=== PATIENT | female | born 1975 | race African-American/Black ===

== ENCOUNTER → 2017-05-16 | Outpatient (CLI) | payer OTHER ==
--- NOTE | 2017-05-16 16:14 | MG ---
HISTORY: SCREENING Comparison: None FINDINGS: Bilateral CC and MLO projections of the right and left breast were obtained. Heterogeneously dense f ibroglandular tissue is seen to be present. No dominant suspicious architectural distortion, mass or clustered microcalcifications can be observed to suggest malignancy. However, there is focal asymme try in the upper outer quadrant right breast at mid to posterior depth which could reflect benign asy mmetrical fibroglandular parenchyma but for which further imaging evaluation is recommended given the lack of previous exams to document stability. No skin thickening or nipple retraction is appreciated . No pathological lymphadenopathy can be identified. Benign-appearing calcifications are noted with in the right and left breast. IMPRESSION: Right breast focal asymmetry for which follow-up spot compression and mL views are recom mended. Ultrasound may be warranted as well pending mammographic findings. ACR CATEGORY 0 - assessment incomplete; additional imaging recommended. Diagnostic CAD was utilized and reviewed. * 0 (ZERO) - ASSESSMENT INCOMPLETE; ADDITIONAL IMAGING IS NEEDED. * 1/1 (ONE) - NEGATIVE. * 2/II (TWO) - BENIGN FINDINGS. * 3/III (THREE) - PROBABLY BENIGN FINDING; SHORT INTERVAL FOLLOW-UP SUGGESTED. * 4/IV (FOUR) - SUSPICIOUS ABNORMALITY; BIOPSY SHOULD BE CONSIDERED. * 5/V - HIGHLY SUSPICIOUS OF MALIGNANCY; BIOPSY SHOULD BE PERFORMED. A NEGATIVE X-RAY REPORT SHOULD NOT DELAY BIOPSY IF A DOMINANT OR CLINICALLY SUSPICIOUS MASS IS PRESENT; 4 TO 8 PERCENT OF CANCERS ARE NOT IDENTIFIED BY X-RAY. A NEGA TIVE REPORT MAY REINFORCE THE CLINICAL IMPRESSION. ADENOSIS AND DENSE BREASTS MAY OBSCURE AN UNDERLY ING NEOPLASM. Reported By:
== END ==
LOC: RAD 09:24
PROVIDERS: ATTEND Internal Medicine
DX: Z12.31 Encounter for screening mammogram for malignant neoplasm of breast (principal)
CPT/HCPCS: 77067

== ENCOUNTER → 2017-05-30 | Outpatient (CLI) | payer OTHER ==
--- NOTE | 2017-05-30 14:46 | MG ---
HISTORY: Right breast focal asymmetry Comparison: 05/16/2017 Diagnostic right mammogram FINDINGS: Spot-compression CC and MLO views of the right breast were obtained as well as standard mediolateral view. There is a persistent small focal asymmetry within the upper-outer quadrant of the right breast . Targeted sonography of the right breast demonstrates a small simple parenchymal cysts measuring ari roximately 3 mm x 1 mm, likely corresponding to the mammographic focal asymmetry. No significant arch itectural distortion, mass or clustered microcalcifications can be observed to suggest malignancy. B enign-appearing calcifications are noted. IMPRESSION: 1. Small parenchymal cyst corresponding to mammographic focal asymmetry of the right breast. ACR CATEGORY 2 - benign findings FOLLOW-UP EXAM 1 YEAR. Diagnostic CAD was utilized and reviewed. * 0 (ZERO) - ASSESSMENT INCOMPLETE; ADDITIONAL IMAGING IS NEEDED. * 1/1 (ONE) - NEGATIVE. * 2/II (TWO) - BENIGN FINDINGS. * 3/III (THREE) - PROBABLY BENIGN FINDING; SHORT INTERVAL FOLLOW-UP SUGGESTED. * 4/IV (FOUR) - SUSPICIOUS ABNORMALITY; BIOPSY SHOULD BE CONSIDERED. * 5/V - HIGHLY SUSPICIOUS OF MALIGNANCY; BIOPSY SHOULD BE PERFORMED. A NEGATIVE X-RAY REPORT SHOULD NOT DELAY BIOPSY IF A DOMINANT OR CLINICALLY SUSPICIOUS MASS IS PRESENT; 4 TO 8 PERCENT OF CANCERS ARE NOT IDENTIFIED BY X-RAY. A NEGA TIVE REPORT MAY REINFORCE THE CLINICAL IMPRESSION. ADENOSIS AND DENSE BREASTS MAY OBSCURE AN UNDERLY ING NEOPLASM. Reported By:
--- NOTE | 2017-05-30 14:48 | US ---
HISTORY: Right breast focal asymmetry Study: Right breast sonogram Comparison: Diagnostic mammogram performed on same day Technique: Multiple grayscale and color flow images of the right breast were obtained. Findings: Imaging of the right breast demonstrates a smoothly marginated hypoechoic ovoid lesion located at the 10 o'clock position and likely corresponding to the mammographic focal asymmetry. The lesion measure s 3 mm x 1 mm in greatest dimensions. There is increased through transmission and no internal Doppler flow. The lesion is horizontally oriented and is most consistent with a benign parenchymal cyst. IMPRESSION: 1. Benign parenchymal cyst corresponding to right breast focal asymmetry. Please see diagnostic mammo gram report as well. Reported By:
== END ==
LOC: RAD 12:35
PROVIDERS: ATTEND Internal Medicine
DX: N64.59 Other signs and symptoms in breast (principal); R92.8 Other abnormal and inconclusive findings on diagnostic imaging of breast
CPT/HCPCS: 76642; 77065